=== PATIENT | female | born 1935 | race Caucasian/White ===

== ENCOUNTER 2022-09-09 14:17 | Emergency (ER) | payer OTHER ==
[~2022-09-09] VITALS: Ht 165.1 cm; Wt 66.0 kg
[2022-09-09 14:35] VITALS: BP 158/90
[2022-09-09] MEDS ORDERED: ALBUTEROL (0.083%) 2.5MG/3ML NEB HHN STA ×2 (14:55→17:11)
[2022-09-09 15:59] LABS: BASOPHILS % 0.6 % (0.0-2.0); EOSINOPHILS % 0.5 % (0.0-5.0); HEMATOCRIT. 40.1 % (36.0-48.0); HEMOGLOBIN. 13.5 g/dL (12.0-16.0); LYMPHOCYTES % 24.3 % (20.0-50.0); MEAN CORPUSCULAR HEMOGLOBIN 29.3 pg (28.0-32.0); MEAN CORPUSCULAR VOLUME 87.3 fL (81.0-99.0); MEAN PLATELET VOLUME 8.8 fl (7.4-10.4); MONOCYTES % 8.8 % (2.0-8.0); NEUTROPHILS % 65.8 % (40.0-76.0); PLATELET 164 x1000/uL (130-400); RED CELL DISTRIBUTION WIDTH 17.4 % (11.6-14.6)
[2022-09-09 16:07] LABS: CHLORIDE 104 mEq/L (98-107)
[2022-09-09] MEDS ORDERED: IPRATROPIUM BROMIDE (0.02%) 0.5MG/2.5ML NEB HHN STA (17:11)
[2022-09-09] MEDS ORDERED: PREDNISONE 20MG TABLET PO STA (17:11)
[2022-09-09] MEDS ORDERED: P50 MT (19:42)
[2022-09-09] MEDS ORDERED: ALBU6.7H15 INH (19:42)
== END 2022-09-09 20:00 | disposition home or self-care (01) ==
LOC: ER 14:17
DX: J45.901 Unspecified asthma with (acute) exacerbation (principal); Z98.890 Other specified postprocedural states; Z20.822 Contact with and (suspected) exposure to COVID-19
CPT/HCPCS: 36415; 71045; 80053; 83880; 84484; 85025; 87426; 87804; 93005; 94640; 99285; C9803; J7512; Z7610